=== PATIENT | female | born 1945 | race Caucasian/White ===

== ENCOUNTER 2023-05-22 19:38 | Emergency (ER) | payer MEDICARE ==
[~2023-05-22] VITALS: Ht 167.6 cm; Wt 101.0 kg
[2023-05-22] MEDS ORDERED: ACETAMINOPH W/CODEINE #3 TAB UD PO ONE (20:40)
[2023-05-22] MEDS ORDERED: ACET-716 PO (22:40)
[2023-05-22 22:48] VITALS: BP 124/66; TEMP 96.9; O2SAT 96
== END 2023-05-22 22:50 | disposition home or self-care (01) ==
LOC: M ED 19:38
DX: S63.8X1A Sprain of other part of right wrist and hand, initial encounter (principal); W01.0XXA Fall on same level from slipping, tripping and stumbling without subsequent striking against object, initial encounter; Y92.009 Unspecified place in unspecified non-institutional (private) residence as the place of occurrence of the external cause; Z88.1 Allergy status to other antibiotic agents; Z79.1 Long term (current) use of non-steroidal anti-inflammatories (NSAID)